=== PATIENT | female | born 1990 | race Caucasian/White ===

== ENCOUNTER 2020-02-07 00:56 | Emergency (ER) | payer OTHER ==
[2020-02-07 01:20] VITALS: BP 123/78
--- NOTE | 2020-02-07 01:27 | ER Document Report ---
ED General - General Chief Complaint: Needle Stick Exposure Stated Complaint: NEEDLE STICK Time Seen by Provider: 02/07/20 01:20 - HPI Notes: Patient is a 29-year-old female, employee here at [employer], who presents to the emergency department for evaluation after needlestick injury. She poked herself in the left index finger after an IM injection on a patient. She states that the patient was low risk for HIV, hepatitis. The patient immediately removed her gloves, washed her hands with soap and water for an extended period of time. She has no history of HIV or hepatitis. Her immunizations are up-to-date. - Related Data Allergies/Adverse Reactions: [facility]aclor [[facility]] Allergy (Verified 02/07/20 01:07) Home Medications: None Past Medical History - General Information source: Patient - Social History Smoking Status: Never Smoker Frequency of alcohol use: None Drug Abuse: None Family History: None Patient has homicidal ideation: No Review of Systems - Review of Systems Constitutional: No symptoms reported EENT: No symptoms reported Cardiovascular: No symptoms reported Respiratory: No symptoms reported Gastrointestinal: No symptoms reported Genitourinary: No symptoms reported Musculoskeletal: No symptoms reported Skin: See HPI Neurological/Psychological: No symptoms reported -: Yes All other systems reviewed and negative Physical Exam - Vital signs Vitals: Temp Pulse Resp BP Pulse Ox 98.2 F 86 16 123/78 99 02/07/20 01:10 02/07/20 01:10 02/07/20 01:10 02/07/20 01:10 02/07/20 01:10 - Notes Notes: This is a well-appearing 29-year-old female, who appears her stated age, in no acute distress. Vital signs reviewed. Head is normocephalic and appears atraumatic. Pupils are equal and round. Oral mucosa is moist. Skin is warm and dry. Examination of the skin of the left upper extremity yields a 4 mm linear, superficial appearing laceration to the distal phalanx, palmar aspect, consistent with a needlestick injury. Course - Re-evaluation Re-evalutation: 02/07/20 01:28 Patient presents to the emergency department for evaluation. She did have a needlestick injury here at work. She followed appropriate precautions and instructions and scrubbed the area thoroughly following. It seems to be a low risk injury. She was counseled on HIV medications for prevention of transmission, but it was also explained that the rate of transmission and even known positive HIV patients is extremely low. The patient has opted against prophylaxis at this time, which is a very reasonable decision. Patient's blood work will be ordered and drawn, including hepatitis panel, HIV panel. She is to follow-up with employee health for further testing. She understands it all testing done at this point is for baseline, she will need further testing to evaluate for conversion. - Vital Signs Vital signs: Temp Pulse Resp BP Pulse Ox 98.2 F 86 16 123/78 99 02/07/20 01:10 02/07/20 01:10 02/07/20 01:10 02/07/20 01:10 02/07/20 01:10 Discharge - Discharge Clinical Impression: Needlestick injury of finger Condition: Stable Disposition: HOME, SELF-CARE Instructions: Contaminated Needle-Stick ([facility]) Additional Instructions: Testing has been ordered to evaluate for hepatitis, HIV. This is baseline testing. You will need to follow-up with employee [facility] and have repeat testing performed per their protocols. Keep the area of your injury clean with soap and water. Protect from further contamination. If you develop increased pain, fevers, drainage, or any other new or concerning symptoms, please return immediately to the emergency department for evaluation.
[2020-02-08 06:37] LABS: HEPATITS B SURFACE ANTIGEN Negative (Negative)
[2020-02-08 07:04] LABS: HEPATITIS C VIRUS ANTIBODY 0.1 s/co ratio (0.0-0.9)
== END 2020-02-07 02:21 | disposition home or self-care (01) ==
LOC: ER 00:56
DX: S61.231A Puncture wound without foreign body of left index finger without damage to nail, initial encounter (principal); W46.0XXA Contact with hypodermic needle, initial encounter; Y92.239 Unspecified place in hospital as the place of occurrence of the external cause; Y99.0 Civilian activity done for income or pay
CPT/HCPCS: 36415; 80074; 86701; 99283